=== PATIENT | female | born 1975 | race Caucasian/White ===

== ENCOUNTER 2021-08-24 09:23 | Emergency (ER) | payer OTHER ==
[~2021-08-24] VITALS: Ht 175.3 cm; Wt 179.5 kg
[2021-08-24 10:35] VITALS: BP 152/103; TEMP 98.1
[2021-08-24] MEDS ORDERED: NORCO 325 MG-51 TAB PO (12:16)
[2021-08-24 13:13] VITALS: PULSE 79
[2021-08-24] MEDS ORDERED: ULTRAM 50MG TAB50 MG PO (13:13)
== END 2021-08-24 13:13 | disposition home or self-care (01) ==
LOC: COL.ER 09:23
DX: M25.562 Pain in left knee (principal); E66.01 Morbid (severe) obesity due to excess calories; Z68.43 Body mass index [BMI] 50.0-59.9, adult; Z88.5 Allergy status to narcotic agent
CPT/HCPCS: J1885

== ENCOUNTER → 2022-06-27 | Outpatient (CLI) | payer OTHER ==
[~2022-06-27] MED LIST: NORCO 325 MG-51 TAB PO; ULTRAM 50MG TAB50 MG PO
[2022-06-27 11:22] LABS: BASO # 0.1 K/mm3 (0.0-0.2); BASO % 0.8 % (0.0-2.0); EOS # 0.3 K/mm3 (0.0-0.7); EOS % 2.4 % (0.0-4.0); GRAN # 8.9 K/mm3 (1.4-6.5); GRAN % 72.8 % (42.2-75.2); HEMATOCRIT 46.8 % (37.0-47.0); HEMOGLOBIN 15.7 g/dl (12.5-16.0); LYMPH # 2.1 K/mm3 (1.2-3.4); MEAN CELL VOLUME 93 fl (80.0-100.0); MEAN CORPUSCULAR HEMOGLOBIN 31 pg (27-31); MEAN CORPUSCULAR HGB CONC 34 g/dl (33.0-37.0); MEAN PLATELET VOLUME 10.2 fl (7.4-10.4); MONO # 0.8 K/mm3 (0.1-0.6); MONO % 6.7 % (1.7-9.3); PLATELET COUNT 407 K/mm3 (130-400); RED BLOOD COUNT 5.06 M/mm3 (4.10-5.30); REDCELL DISTRIBUTION WIDTH-CV 12.4 % (11.5-14.5)
[2022-06-27 11:38] LABS: ALBUMIN 3.5 gm/dL (3.5-5.0); BILIRUBIN,TOTAL 1.2 mg/dL (0.2-1.2); CALCIUM 9.1 mg/dL (8.4-10.2); CHOLESTEROL RISK RATIO 5.5; CREATININE, serum 0.66 mg/dL (0.57-1.11); TOTAL PROTEIN 7.6 gm/dL (6.2-8.1)
[2022-06-27 11:53] LABS: TSH w REFLEX 0.815 uIU/mL (0.350-4.940)
[2022-06-27 12:09] LABS: POTASSIUM 4.1 mmol/L (3.5-4.5)
[2022-07-02 11:06] LABS: VITAMIN B1 142 nmol/L (70-180)
== END ==
LOC: COL.LAB 10:00
PROVIDERS: Family Medicine
DX: R20.2 Paresthesia of skin (principal); E55.9 Vitamin D deficiency, unspecified; R73.03 Prediabetes

== ENCOUNTER → 2022-11-19 | Outpatient (CLI) | payer OTHER ==
[2022-11-19 13:29] LABS: BASO # 0.2 K/mm3 (0.0-0.2); BASO % 1.2 % (0.0-2.0); EOS # 0.3 K/mm3 (0.0-0.7); EOS % 2.7 % (0.0-4.0); GRAN # 8.3 K/mm3 (1.4-6.5); GRAN % 66.7 % (42.2-75.2); LYMPH # 2.9 K/mm3 (1.2-3.4); LYMPH % 23.3 % (20.0-51.0); MEAN CELL VOLUME 95 fl (80.0-100.0); MEAN CORPUSCULAR HEMOGLOBIN 31 pg (27-31); MEAN CORPUSCULAR HGB CONC 33 g/dl (33.0-37.0); MEAN PLATELET VOLUME 10.4 fl (7.4-10.4); MONO # 0.7 K/mm3 (0.1-0.6); MONO % 5.9 % (1.7-9.3); PLATELET COUNT 409 K/mm3 (130-400); RED BLOOD COUNT 4.86 M/mm3 (4.10-5.30); REDCELL DISTRIBUTION WIDTH-CV 12.6 % (11.5-14.5)
[2022-11-19 13:32] LABS: COLLECTION METHOD CLEAN CATCH; PH 5.5 (5.0-8.5); URINE APPEARANCE Clear (CLEAR/HAZY); URINE BLOOD 1+ (NEGATIVE); URINE COLOR Yellow (YELLOW); URINE GLUCOSE Negative (NEGATIVE); URINE KETONE Negative (NEGATIVE); URINE NITRATE Negative (NEGATIVE); URINE PROTEIN(semi-quant) Negative (NEGATIVE); URINE UROBILINOGEN 0.2 E.U/dL (0.2-1.0)
[2022-11-19 13:34] LABS: MUCOUS Present (NOT PRESENT); URINE BACTERIA Rare /hpf (NONE SEEN)
[2022-11-19 13:36] LABS: PROTHROMBIN TIME 11.9 SECONDS (9.7-12.8)
[2022-11-19 13:45] LABS: ALBUMIN 3.4 gm/dL (3.5-5.0); BILIRUBIN,TOTAL 0.7 mg/dL (0.2-1.2); CALCIUM 9.1 mg/dL (8.4-10.2); CREATININE, serum 0.74 mg/dL (0.57-1.11); TOTAL PROTEIN 7.2 gm/dL (6.2-8.1)
== END ==
LOC: COL.LAB 12:44
PROVIDERS: Physician Assistant Medical
DX: Z01.818 Encounter for other preprocedural examination (principal)

== ENCOUNTER → 2022-11-29 | Outpatient (CLI) | payer OTHER ==
[2022-11-29 15:14] LABS: COLLECTION METHOD CLEAN CATCH
[2022-11-29 15:47] LABS: MUCOUS Present (NOT PRESENT); SQUAMOUS EPITHELIAL 20-50 /hpf (0-10); URINE BACTERIA Rare /hpf (NONE SEEN); URINE WBC 0-2 /hpf (0-2)
[2022-11-29 15:55] LABS: PH 5.5 (5-8); URINE APPEARANCE Hazy (CLEAR/HAZY); URINE BLOOD 1+ (NEGATIVE); URINE COLOR Yellow (YELLOW); URINE GLUCOSE Negative (NEGATIVE); URINE KETONE Negative (NEGATIVE); URINE NITRATE Negative (NEGATIVE); URINE PROTEIN(semi-quant) Negative (NEGATIVE); URINE UROBILINOGEN 0.2 (NEGATIVE)
== END ==
LOC: COL.LAB 15:02
PROVIDERS: Orthopaedic Surgery
DX: Z01.812 Encounter for preprocedural laboratory examination (principal)

== ENCOUNTER → 2022-12-03 | Outpatient (RCR) | payer OTHER ==
[~2022-12-03] MED LIST changes: +ASPIRIN 32325 MG/TA1 PO; +PERCOCET 325 MG1 TA3 PO; +PRIL40 PO; +SAXENDA6 MG/ML; +SAXENDA6 MG/ML SQ
== END ==
LOC: WSPT
DX: M17.12 Unilateral primary osteoarthritis, left knee (principal); M54.50 Low back pain, unspecified

== ENCOUNTER → 2023-01-03 | Outpatient (RCR) | payer OTHER | END | disposition home or self-care (01) | LOC: WSPT | DX: M54.50 Low back pain, unspecified (principal); G89.29 Other chronic pain ==

== ENCOUNTER → 2023-01-10 | Outpatient (CLI) | payer OTHER | LOC: COL.VAS 09:37 | DX: I82.812 Embolism and thrombosis of superficial veins of left lower extremity (principal) ==

== ENCOUNTER 2023-01-29 10:30 | Outpatient (RCR) | payer OTHER | END 2023-02-02 | disposition home or self-care (01) | LOC: WSPT | DX: Z96.652 Presence of left artificial knee joint (principal) ==

== ENCOUNTER → 2024-03-15 | Outpatient (CLI) | payer OTHER | LOC: COL.RAD 13:10 | DX: M79.672 Pain in left foot (principal) ==

== ENCOUNTER 2024-04-01 09:56 | Outpatient (RCR) | payer OTHER | END 2024-04-04 | disposition home or self-care (01) | LOC: WSPT | DX: M79.2 Neuralgia and neuritis, unspecified (principal); M25.472 Effusion, left ankle; M54.50 Low back pain, unspecified; Z98.1 Arthrodesis status ==

== ENCOUNTER → 2024-05-05 | Outpatient (RCR) | payer OTHER | END | disposition home or self-care (01) | LOC: WSPT | DX: M79.2 Neuralgia and neuritis, unspecified (principal); M25.472 Effusion, left ankle ==

== ENCOUNTER 2024-05-11 16:23 | Outpatient (RCR) | payer OTHER | END 2024-06-05 | disposition home or self-care (01) | LOC: WSPT | DX: G62.9 Polyneuropathy, unspecified (principal); R22.42 Localized swelling, mass and lump, left lower limb ==

== ENCOUNTER → 2024-06-15 | Outpatient (CLI) | payer OTHER | LOC: COL.RAD 10:45 | DX: M19.072 Primary osteoarthritis, left ankle and foot (principal) ==